=== PATIENT | male | born 1980 | race Caucasian/White ===

== ENCOUNTER → 2017-10-25 | Outpatient (REF) | LOC: M SMT 11:39 | DX: Z02.71 Encounter for disability determination (principal) ==

== ENCOUNTER 2018-07-16 08:11 | Emergency (ER) | payer OTHER ==
[~2018-07-16] VITALS: Ht 170.2 cm; Wt 102.3 kg
[2018-07-16] MEDS ORDERED: NS 500 ML IV ONE (08:30)
[2018-07-16] MEDS ORDERED: ONDANSETRON 4MG/2ML VIAL (J2405) IV ONE (08:30)
[2018-07-16] MEDS ORDERED: KETOROLAC 30 MG/ML VIAL (J1885) IV ONE (08:30)
[2018-07-16 08:54] LABS: BASO # 0.1 10^3/uL (0.0-0.2); BASO % 0.8 % (0.0-1.0); EOS # 0.2 10^3/uL (0.0-0.50); EOS % 2.1 % (0.0-3.0); HEMOGLOBIN 15.8 g/dl (13.5-17.5); LYMPH # 1.7 10^3/uL (1.5-4.5); LYMPH % 23.1 % (24.0-44.0); MEAN CORPUSCULAR HEMOGLOBIN 30.3 pg (27.0-33.0); MEAN CORPUSCULAR HGB CONC 34.3 g/dl (32.0-36.5); MEAN CORPUSCULAR VOLUME 88.1 fl (80.0-96.0); MONO # 0.6 10^3/uL (0.0-0.8); MONO % 8.4 % (0.0-5.0); NEUTROPHILS # 4.7 10^3/uL (1.8-7.7); NEUTROPHILS % 64.9 % (36.0-66.0); PLATELET COUNT, AUTOMATED 301 10^3/uL (150-450); RED BLOOD COUNT 5.22 10^6/uL (4.30-6.10); WHITE BLOOD COUNT 7.3 10^3/uL (4.0-10.0)
[2018-07-16] MEDS ORDERED: MORPHINE 4 MG/ML 1ML VIAL/SYRINGE (J2270) IV ONE (09:15)
[2018-07-16 09:22] LABS: BLOOD UREA NITROGEN 16 MG/DL (7-18); CALCIUM LEVEL 8.9 MG/DL (8.5-10.1); CARBON DIOXIDE LEVEL 27 MEQ/L (21-32); CHLORIDE LEVEL 106 MEQ/L (98-107); GLOMERULAR FILTRATION RATE > 60.0 (>60); GLUCOSE, FASTING 128 MG/DL (70-100); POTASSIUM SERUM 4.2 MEQ/L (3.5-5.1); SODIUM LEVEL 139 MEQ/L (136-145)
--- NOTE | 2018-07-16 09:39 | REP ---
CT ABDOMEN PELVIS WITHOUT IV OR ORAL CONTRAST: Renal stone protocol. HISTORY: Left flank pain. COMPARISON STUDY: July 17, 2015. 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 The lung bases are clear on axial CT images. The liver and spleen are normal in size homogeneous in texture. The gallbladder and pancreas are unremarkable. No adrenal lesion is seen on either side. No retroperitoneal mass or adenopathy is observed. Small and large intestinal bowel loops are normal in the abdomen and pelvis. A normal appendix is seen in the right lower quadrant. There is an intrarenal calculus 3 mm in diameter in the right mid kidney. Another smaller calculus is seen in the lower pole collecting system on the right. There is no evidence of hydronephrosis on either side. No intrarenal calculus is visible on the left. There is however, a 3 mm distal ureteral calculus several centimeters above the ureterovesical junction with slight hydroureter. No bladder calculus is seen. Prostate and seminal vesicles are unremarkable. The urinary bladder is empty. IMPRESSION: Minimally obstructive 3 mm left distal ureteral calculus. There are two intrarenal calculi on the right. Otherwise negative. Electronically Signed by Cleveland Barbosa MD 07/16/2018 10:40 A
[2018-07-16] MEDS ORDERED: HYDROMORPHONE HCL 0.5 MG/ 0.5 ML SYRINGE (J1170 PER 1) IV ONE (10:15)
[2018-07-16 10:52] VITALS: BP 116/74
[2018-07-16] MEDS ORDERED: NORCOTAB PO (11:02)
[2018-07-16] MEDS ORDERED: ONDA4TAB6 PO (11:02)
[2018-07-16] MEDS ORDERED: NAPR-50 PO (11:02)
[2018-07-16] MEDS ORDERED: FLOM0.4C39 PO (11:02)
== END 2018-07-16 11:15 | disposition home or self-care (01) ==
LOC: M ED 08:11
DX: N20.0 Calculus of kidney (principal); N20.1 Calculus of ureter
CPT/HCPCS: 74176; 80048; 81001; 85025; 96374; 96375; 99284; J1170; J1885; J2270; J2405

== ENCOUNTER → 2018-07-19 | Outpatient (REF) ==
[~2018-07-19] MED LIST: FLOM0.4C39 PO; NAPR-50 PO; NORCOTAB PO; ONDA4TAB6 PO
--- NOTE | 2018-07-19 20:00 | REP ---
Clinical: Right shoulder pain . Technique: Internal rotation, external rotation, and Y view. Findings: No acute fracture or dislocation. The acromioclavicular and glenohumeral joints are intact. No periarticular calcifications or degenerative changes are appreciated. Sub acromial space is normal. Surrounding soft tissues are unremarkable. Impression: Normal right shoulder radiographs. Electronically Signed by Greg Johns MD 07/19/2018 07:51 P
== END ==
LOC: M RAD 10:21
PROVIDERS: ATTEND Physician Assistant Medical
DX: Z00.00 Encounter for general adult medical examination without abnormal findings (principal)

== ENCOUNTER → 2019-01-08 | Outpatient (REF) ==
[~2019-01-08] MED LIST changes: +HYDR-3715 PO; -NAPR-50 PO; +NAPR-837 PO; -NORCOTAB PO
--- NOTE | 2019-01-08 11:43 | REP ---
Lumbar spine three views: Comparison is 03/08/2017. Vertebral body heights, interspacing alignment are normal. There is no spondylolysis or spondylolisthesis. The pedicles, facets and sacroiliac articulations are unremarkable. Impression: Negative lumbar spine. There is no interval change. Electronically Signed by Pedro Reed MD 01/08/2019 11:36 A
--- NOTE | 2019-01-08 11:47 | REP ---
Right knee five views : There is no fracture or dislocation. Mineralization and joint spaces are normal. There are no calcifications or foreign bodies. Impression: Negative right knee . Electronically Signed by Pedro Reed MD 01/08/2019 11:39 A
== END ==
LOC: M SMT 10:36
PROVIDERS: ATTEND Internal Medicine
DX: Z00.00 Encounter for general adult medical examination without abnormal findings (principal)

== ENCOUNTER 2020-10-05 15:15 | Emergency (ER) | payer OTHER ==
[~2020-10-05] VITALS: Ht 172.7 cm; Wt 112.1 kg
[2020-10-05 15:16] VITALS: BP 139/94
[2020-10-05] MEDS ORDERED: TETRACAINE 0.5% OPHTH SOLN 4ML OU ONE (17:55)
[2020-10-05] MEDS ORDERED: FLUORESCEIN OPHTH 1 MG STRIP OU ONE (17:55)
[2020-10-05] MEDS ORDERED: TOBRSUS41 OD (18:44)
[2020-10-05] MEDS ORDERED: DOXY100C37 PO (18:44)
[2020-10-05] MEDS ORDERED: TOBRADEX OPHTH SUSP 2.5 ML OD ONE (18:45)
[2020-10-05] MEDS ORDERED: DOXYCYCLINE HYCLATE 100MG TABLET PO ONE (18:45)
== END 2020-10-05 19:09 | disposition home or self-care (01) ==
LOC: M ED 15:15
DX: L03.213 Periorbital cellulitis (principal); H10.31 Unspecified acute conjunctivitis, right eye

== ENCOUNTER → 2022-11-16 | Outpatient (REF) | payer OTHER ==
[~2022-11-16] MED LIST changes: +DOXY-443 PO; +TOBRSUS41 OD
== END ==
LOC: M LAB REF 16:32
PROVIDERS: ATTEND Nurse Practitioner Family
DX: J02.9 Acute pharyngitis, unspecified (principal)

== ENCOUNTER → 2024-02-16 | Outpatient (CLI) | payer OTHER ==
[~2024-02-16] MED LIST changes: +DOXY-323 PO; -DOXY-443 PO; +ONDA-282 PO; -ONDA4TAB6 PO
== END ==
LOC: M RAD 06:11
PROVIDERS: ATTEND Physician Assistant Medical
DX: R10.11 Right upper quadrant pain (principal)

== ENCOUNTER 2024-04-30 03:20 | Emergency (ER) | payer OTHER ==
[~2024-04-30] VITALS: Ht 170.2 cm; Wt 110.5 kg
[~2024-04-30 03:20] MED LIST changes: -DOXY-323 PO; +DOXY-441 PO
[2024-04-30 03:47] LABS: BASO # 0.1 10^3/uL (0.0-0.2); BASO % 0.7 % (0.0-1.0); EOS # 0.2 10^3/uL (0.0-0.5); EOS % 2.2 % (0.0-3.0); HEMATOCRIT 44.6 % (42.0-52.0); HEMOGLOBIN 15.6 g/dl (13.5-17.5); LYMPH # 2.8 10^3/uL (1.5-5.0); LYMPH % 34.2 % (24.0-44.0); MEAN CORPUSCULAR HEMOGLOBIN 30.8 pg (27.0-33.0); MEAN CORPUSCULAR VOLUME 88.1 fl (80.0-96.0); MONO # 0.7 10^3/uL (0.0-0.8); MONO % 8.4 % (2.0-8.0); NEUTROPHILS # 4.4 10^3/uL (1.5-8.5); NEUTROPHILS % 54.1 % (36.0-66.0); PLATELET COUNT, AUTOMATED 277 10^3/uL (150-450); RED BLOOD COUNT 5.06 10^6/uL (4.30-6.10); WHITE BLOOD COUNT 8.1 10^3/uL (4.0-10.0)
[2024-04-30] MEDS ORDERED: ISOVUE-370 76% 100ML VIAL As Ordered ONE (04:07)
[2024-04-30 04:14] LABS: ALBUMIN 3.7 G/DL (3.2-5.2); BILIRUBIN,DIRECT 0.3 MG/DL (<0.4); BILIRUBIN,TOTAL 0.9 MG/DL (0.3-1.2); TOTAL PROTEIN 6.8 G/DL (5.7-8.2)
[2024-04-30] MEDS: ONDANSETRON 4MG 2ML VIAL IV ONE (04:30)
[2024-04-30] MEDS: KETOROLAC 30 MG/ML 1ML VIAL IV ONE (04:30)
[2024-04-30] MEDS ORDERED: ONDA-282 PO (06:04)
[2024-04-30] MEDS ORDERED: KETO10TAB PO (06:04)
[2024-04-30] MEDS ORDERED: FLOM0.4C39 PO (06:04)
[2024-04-30 06:20] VITALS: BP 110/88; TEMP 97.1; O2SAT 96
[2024-04-30] MEDS: TAMSULOSIN 0.4 MG CAP PO ONE (06:20)
== END 2024-04-30 06:28 | disposition home or self-care (01) ==
LOC: M ED 03:20
DX: N20.1 Calculus of ureter (principal); Z79.2 Long term (current) use of antibiotics; Z79.83 Long term (current) use of bisphosphonates; Z79.899 Other long term (current) drug therapy
CPT/HCPCS: 74177; 80047; 80076; 83690; 85025; 93041; 96374; 99285; J1885; J2405; Q9967

== ENCOUNTER → 2025-03-04 | Outpatient (CLI) | payer OTHER ==
[~2025-03-04] MED LIST changes: -FLOM0.4C39 PO; +KETO10TAB PO; +TAMS-18 PO
== END ==
LOC: M RAD 07:55
PROVIDERS: ATTEND Physician Assistant
DX: R10.10 Upper abdominal pain, unspecified (principal); K76.0 Fatty (change of) liver, not elsewhere classified; R14.0 Abdominal distension (gaseous)

== ENCOUNTER → 2025-05-06 | Outpatient (REF) | payer OTHER | LOC: M LAB REF 17:14 | PROVIDERS: ATTEND Nurse Practitioner Family | DX: R10.9 Unspecified abdominal pain (principal) ==

== ENCOUNTER → 2025-05-16 | Outpatient (CLI) | payer OTHER ==
[~2025-05-16] MED LIST changes: +ISOVUE-370 76% 100 ML VIAL ONE
== END ==
LOC: M PLAIMG 13:20
PROVIDERS: ATTEND Nurse Practitioner Family
DX: K57.90 Diverticulosis of intestine, part unspecified, without perforation or abscess without bleeding (principal)
CPT/HCPCS: 74177; Q9967

== ENCOUNTER → 2025-06-10 | Outpatient (CLI) | payer OTHER ==
[~2025-06-10] MED LIST changes: +E-Z-GAS II EFFERVESCENT PACKET (SODIUM BICARB./CITRIC ACID/SIMETHICONE) As Ordered ONE; +E-Z-HD 98% w/w 340 GM SUSP BTL As Ordered ONE; +E-Z-PAQUE 96% w/w SUSP 176 GM BTL As Ordered ONE; -ISOVUE-370 76% 100 ML VIAL ONE
== END ==
LOC: M RAD 10:48
PROVIDERS: ATTEND Nurse Practitioner Family
DX: K21.9 Gastro-esophageal reflux disease without esophagitis (principal); R93.3 Abnormal findings on diagnostic imaging of other parts of digestive tract